=== PATIENT | female | born 1940 | race African-American/Black ===

== ENCOUNTER → 2017-01-31 | Day surgery (SDC) | payer OTHER ==
--- NOTE | 2017-02-01 14:41 | PATH ---
Cytology Non-Gynecological Report Patient Name: [facility]. Rec. #: [id number] /Age/Gender: 1940 (Age: 76) / F Account: [id number] Location: RADIOLOGY Taken: 01/31/2017 Received: 01/31/2017 Reported: 02/01/2017 Physicians: Hamilton Campos M.D. Specimen(s) Received RIGHT THYROID FNA Clinical History Right thyroid nodule Final Diagnosis THYROID GLAND, RIGHT LOBE, US GUIDED FINE NEEDLE ASPIRATION BIOPSY: SATISFACTORY FOR EVALUATION. NO MALIGNANT CELLS IDENTIFIED. CONSISTENT WITH NODULAR GOITER WITH CYSTIC CHANGE (BENIGN FOLLICULAR NODULE, BETHESDA CATEGORY II, BENIGN), SEE COMMENT. Comment: The smears and the cell block show clusters of bland appearing follicular epithelial cells arranged in mixed macro- and microfollicles and flat sheets. Some cells show Hurthle cell (oncocytic) change. Macrophages are present indicative of cystic change. Colloid is present. Electronically Signed Ten Escalona M.D. Gross Description Received are four air dried smears, four smears in 95% alcohol, and 20 cc of bloody fluid in formalin. Four diff-quik stained slides, four Pap stained slides and one cell block are made.
== END | disposition home or self-care (01) ==
LOC: JRADIR 08:36
PROVIDERS: ATTEND Specialist
PROC: 0G9H3ZX Drainage of Right Thyroid Gland Lobe, Percutaneous Approach, Diagnostic (ICD-10-PCS; principal; 2017-01-31)
PROC: BG44ZZZ Ultrasonography of Thyroid Gland (ICD-10-PCS; 2017-01-31)
DX: E04.1 Nontoxic single thyroid nodule (principal)
CPT/HCPCS: 76942; 88173; 88305-TC

== ENCOUNTER 2017-03-04 05:03 | Inpatient (IN) | payer OTHER ==
--- NOTE | 2017-03-04 09:38 | HP ---
History & Physical Update - History History: No Change - Physical Physical: No Change - Assessment Assessment: No Change - Plan Plan: No Change
[2017-03-04] MEDS ORDERED: SUCCINYLCHOLINE CHLORIDE 200 MG/10 ML VIAL ONE (09:58)
[2017-03-04] MEDS ORDERED: PROPOFOL 20 ML ONE (09:58)
[2017-03-04] MEDS ORDERED: LIDOCAINE HCL/PF 2% SDV 5ML VIAL ONE (09:58)
[2017-03-04] MEDS ORDERED: MIDAZOLAM HCL 2 MG/2 ML SINGLE DOSE VIAL ONE (11:13)
[2017-03-04] MEDS ORDERED: ePHEDrine SULFATE 50 MG/1 ML AMPULE ONE (11:17)
[2017-03-04] MEDS ORDERED: ONDANSETRON 4 MG/2 ML VIAL IVPUSH PRN (14:07)
[2017-03-04] MEDS ORDERED: PROMETHAZINE HCL 25 MG/1 ML VIAL IVPUSH PRN (14:07)
[2017-03-04] MEDS ORDERED: oxyCODONE HCL 5 MG TABLET PO PRN (14:07)
--- NOTE | 2017-03-04 14:07 | OP ---
Operative Note - Note: Operative Date: 03/04/17 Pre-Operative Diagnosis: Nodular goiter , right lobe of thyroid. Operation: Total thyroidectomy , removal of mediastinal goiter , cervical approach. Use of Nervana nerve monitor. Findings: Very large, nodular right lobe of thyroid, extending to the left side of mediastinum into the chest , bilaterally. Nodule extending posteriorly and wrapped around the trachea. Post-Operative Diagnosis: Other (Very large , multinodular goiter, with mediastinal and thoracic extention.) Surgeon: Stephanie Wynn Air Export Coordinator: Harvey Rodas Specimens Removed: Nodular thyroid goiter, and mediastinal goiter. Estimated Blood Loss (mls): 350 Blood Volume Replaced (mls): 250 Operative Report Dictated: Yes
[2017-03-04] MEDS ORDERED: HYDROmorphone HCL CARPU-JECT 1 MG/1 ML DISP.SYRIN IM PRN (14:23)
[2017-03-04] MEDS ORDERED: DEXTROSE 5%-0.45% SALINE 1,000 ML IV SCH (14:30)
[2017-03-04 15:41] LABS: MCH 30.9 pg (25.7-33.7); MCHC 33.7 g/dl (32.0-36.0); MEAN CELL VOLUME 91.7 fl (80-96); MEAN PLT VOLUME 9.9 fl (7.5-11.1); PLATELET COUNT 156 K/MM3 (134-434); RDW 13.6 % (11.6-15.6); WHITE BLOOD COUNT 14.6 K/mm3 (4.0-10.0)
[2017-03-04 16:33] LABS: CPK 183 IU/L (26-192); TROPONIN I < 0.02 ng/ml (0.00-0.05)
--- NOTE | 2017-03-04 16:55 | PN ---
Progress Note (short form) - Note Progress Note: Transferred from PACU to ICU for overnight observation s/p Thyroidectomy. Patient is a 76 year old female with significant past medical history of Goitre , Hypertension, Hyperlipidemia, Diabetes who came in to the ED with her for an elective thyroidectomy. She had her surgery today and was transferred from the PACU for overnight observation in the ICU. As per the report, patient received 1 PRBC in the OR, CBC and calcium to be repeated every 8 hrs. Patient says she is feeling drowsy and wants to sleep. Her pain is well controlled at this time. Denies chest pain, sob, cough, palpitation, abdominal pain, nausea or vomiting. Physical Exam: Vitals: BP- 123/66 mm P: 64 bpm RR: 18 Spo2- 100 % General: Elderly female, laying comfortably in bed, awake, alert, oriented x 3 in no acute distress Eyes: EOM intact, no pallor or icterus Neck: Surgical scar esau around the neck, area looks clean, no serosanguinous fluid, Drain in place Chest: B/L Coarse breath sounds, No wheeze. CVS: Regular, S1, S2, no murmur Abdomen: Soft, non tender, no organomegaly, BS + Ext: No peripheral edema Neuro: No facial droop, ROM normal in all ext, rest of the neuro exam difficult to perform at this time. A/P Patient is a 76 year old female with significant past medical history of Goitre , Hypertension, Hyperlipidemia, Diabetes who came in to the ED with her for an elective thyroidectomy. # Nodular goitre- s/p Total thyroidectomy, removal of mediastinal goiter , cervical approach,with JENNIFER drain in place-'POD 0' Monitor output from the drain, so far- 190 mls. Placed for observation overnight in ICU Patient is hemodynamically stable at this time IV D5-1/2 NS @ 75mls/hr Repeat CBC and calcium at 10pm and to repeat every 8 hrs OOB to chair. Incentive spirometry # Diabetes Mellitus At home takes, Saxagliptin HCl/Metformin ISS Finger stick glucose monitoring Watch for hypoglycemic episodes # Hypertension Takes Losartan/HCTZ 1 tab daily at home, will continue # Hyperlipidemia Rosuvastatin 5mg PO daily # FEN IV D5-1/2 NS @ 75mls Electrolytes to be repeated tomorrow Clear liquid diabetic diet # Prophylaxis For DVT: SCDs, Heparin to be started in 48 hrs. For Prophylaxis: Not indicated # Code Status: Full code # Dispo: Observation overnight in ICU. Illness, Investigation and Plan of care explained to the patient and her . They verbalized understanding.
[2017-03-04 16:56] LABS: FREE T4 1.04 ng/dl (0.76-1.46); THYROID STIMULATING HORMONE 0.37 uIU/ml (0.358-3.74)
--- NOTE | 2017-03-04 18:32 | PN ---
Progress Note, Physician Chief Complaint: S/P Thyroidectomy ? post Op arrythmia History of Present Illness: 76 yrs old F H/O HTN, Depression, T2DM today underwent Partialthyroidectomy by Dr Wynn Pos operatively Developed ? arrythmia /artifact admitted to ICU for overnight observation to R/o ACS, I examined the patient inPACU, Pos Operative undersedation - Current Medication List Current Medications: Active Medications Fentanyl (Sublimaze Injection -) 25 mcg IVPUSH [id number] PRN PRN Reason: PAIN Stop: 03/07/17 14:08 Last Admin: 03/04/17 16:15 Dose: 25 mcg HCTZ/Losartan Potassium (Hyzaar -) 1 tab PO DAILY [facility] Hydromorphone HCl (Dilaudid Injection -) 1 mg IM Q4H PRN PRN Reason: PAIN Dextrose/Sodium Chloride (D5-1/2ns -) 1,000 mls @ 75 mls/hr IV ASDIR [facility]ANE[facility] Ondansetron HCl (Zofran Injection) 4 mg IVPUSH Q6H PRN PRN Reason: NAUSEA AND/OR VOMITING Stop: 03/04/17 20:08 Oxycodone HCl (Roxicodone -) 5 mg PO Q4H PRN PRN Reason: MILD PAIN Paroxetine HCl (Paxil -) 20 mg PO DAILY [facility] Promethazine HCl (Phenergan Injection -) 12.5 mg IVPUSH Q6H PRN PRN Reason: NAUSEA-FOR RESCUE AFTER 15 MIN Stop: 03/04/17 20:08 Propranolol HCl (Inderal La -) 80 mg PO DAILY [facility] - Objective Vital Signs: Vital Signs Temperature 98.3 F 03/04/17 16:44 Pulse Rate 71 03/04/17 16:44 Respiratory Rate 18 03/04/17 16:44 Blood Pressure 123/66 03/04/17 16:44 O2 Sat by Pulse Oximetry (%) 100 03/04/17 16:59 Eldely F s/p Partial thyroidectomy undersedation no distress HEENT: Mm moist no anemoa, PERRLA NECK: S/P Thyroidectomy no JVD CHEST: CTA B/L CVs; s1SR ABD: No distention non tender Bs + EXT: No edema feet, no calf tenderness Pulses + TUG CAPTAIN: Drowsy moving all extermities Labs: CBC, BMP 03/04/17 14:45 CBC,CMP WBC 14.6 K/mm3 (4.0-10.0) H 03/04/17 14:45 RBC 3.69 M/mm3 (3.60-5.2) 03/04/17 14:45 Hgb 11.4 GM/dL (10.7-15.3) 03/04/17 14:45 Hct 33.9 % (32.4-45.2) 03/04/17 14:45 MCV 91.7 fl (80-96) 03/04/17 14:45 MCH 30.9 pg (25.7-33.7) 03/04/17 14:45 MCHC 33.7 g/dl (32.0-36.0) 03/04/17 14:45 RDW 13.6 % (11.6-15.6) 03/04/17 14:45 Plt Count 156 K/MM3 (134-434) 03/04/17 14:45 MPV 9.9 fl (7.5-11.1) 03/04/17 14:45 POC Glucometer 143 UNITS (()) 03/04/17 08:14 Calcium 8.5 mg/dL (8.5-10.1) 03/04/17 14:45 Creatine Kinase 183 IU/L (26-192) 03/04/17 14:45 Creatine Kinase Index 0.9 % (0.0-5.0) 03/04/17 14:45 CK-MB (CK-2) 1.751 ng/mL (0.5-3.6) 03/04/17 14:45 Troponin I < 0.02 ng/ml (0.00-0.05) 03/04/17 14:45 TSH 0.37 uIU/ml (0.358-3.74) 03/04/17 15:40 Free T4 1.04 ng/dl (0.76-1.46) 03/04/17 15:40 - ....Imaging X-ray: Report Reviewed (No Pneumothorax) EKG: Report Reviewed (NSR at [address] chnages) Problem List - Problems (1) Diabetes Assessment/Plan: Hold Po meds RISS Code(s): E11.9 - TYPE 2 DIABETES MELLITUS WITHOUT COMPLICATIONS Qualifiers: Diabetes mellitus type: type 1 Diabetes mellitus complication status: with skin complications (2) T2DM (type 2 diabetes mellitus) Code(s): E11.9 - TYPE 2 DIABETES MELLITUS WITHOUT COMPLICATIONS (3) Status post thymectomy Assessment/Plan: S/P Thyroidectomy for goiter , post OP management as per surgery team Code(s): Z90.89 - ACQUIRED ABSENCE OF OTHER ORGANS (4) HTN (hypertension) Assessment/Plan: Well controlled cont home meds Code(s): I10 - ESSENTIAL (PRIMARY) HYPERTENSION
--- NOTE | 2017-03-04 18:55 | OP ---
DATE OF OPERATION: 03/04/2017 PREOPERATIVE DIAGNOSIS: Nodule in right lobe of thyroid, status post right thyroid lobectomy 30 years ago. POSTOPERATIVE DIAGNOSIS: Multinodular thyroid goiter that is wrapped around the trachea involving the mediastinum extending down into the chest. OPERATIVE PROCEDURE: Total thyroidectomy with removal of mediastinal goiter through the regular approach and use of Nerveana nerve monitor. SURGEON: Teri Wynn MD SHEET METAL ASSEMBLER AND RIVETER: Harvey Rodas MD ANESTHESIA: General anesthesia using Nerveana nerve monitoring device. OPERATIVE DESCRIPTION: A 76-year-old woman who had a large nodule in the right lobe of the thyroid. She had an ultrasound which showed a large goiter, more than 4 cm in the right lobe of the thyroid. Patient was brought in for thyroidectomy. Risks , benefits, and complications were discussed with the patient, and anesthesia was administered. The neck was painted and draped and positioned in extension. A timeout was called. Incision was made over the superior skin scar, along the skin crease, 1 fingerbreadth above the clavicle. It was deepened through the skin and subcutaneous tissue and platysma muscle. Superior and inferior skin flaps were then placed between the platysma, and the deep cervical fascia. There were extensive adhesions in the neck which were also lysed. The gland was then exposed. It extended around the trachea and the larynx, all the way to the vertebral body, extended across the front over the trachea towards the left and down into the mediastinum on both sides of the trachea down into the chest. The gland was then mobilized carefully, starting with the upper pole of the right lobe of the thyroid, dividing the superior thyroid vessels between clips, and the LigaSure. The middle thyroid vein was also divided between clips and LigaSure. The parathyroid glands were identified and preserved throughout the procedure. The gland was then mobilized carefully. There were multiple nodules. This was then carried across the midline towards the left of the trachea. The mediastinal component was brought into the neck bilaterally. The mediastinal component on the left side was easily brought into the neck through the cervical approach. The right sided thyroid nodule, extended posteriorly way down into the chest, and therefore, only the nodules that were easily accessible, and excised, were removed and the rest was left in the chest. However its blood supply shahab interrupted from the neck. Hemostasis was satisfactory at the completion of the procedure. The recurrent laryngeal nerve on the right side was identified and preserved with appropriate response to stimulation with the Nerveana nerve monitoring device. The hemostasis was satisfactory at the completion of the procedure. The No. 10 Edwin-Tobias drain was left in the wound and brought out through stab wound on the right side. The gland was removed at the site of previous division. Specimen was sent to Pathology. Hemostasis was complete at the completion of procedure. There was about 350 mL of blood loss during the procedure. Sponge count, instrument count was correct at the completion of the procedure. The wounds were closed in layers, approximating the strap muscles with interrupted 2-0 Vicryl sutures, platysma buried interrupted 3-0 Vicryl sutures, and skin approximated continuous 4-0 Monocryl suture in a running subcuticular fashion. Sponge count, instrument count is correct at the completion of the procedure. Patient was extubated and awake at the completion of the procedure. Patient will be monitored in ICU. Hamilton [id number]
[2017-03-04] MEDS: INSULIN SLIDING SCALE (NOVOLOG) 1 VIAL SQ SCH (19:08)
[2017-03-04] MEDS ORDERED: SODIUM CHLORIDE 250 ML IV STA (20:37)
--- NOTE | 2017-03-04 21:23 | CONSULT ---
Consult - text type - Consultation Consultation Note: PULMONARY/CRITICAL CARE CONSULT: CC: s/l total thyroidectomy HPI: Briefly, 76 y/o female with HTN, HLD and DM2 who underwent total thyroidectomy today with Dr Wynn. She was admitted to the ICU post up for ? observation. Current Medications Fentanyl (Sublimaze Injection -) 25 mcg IVPUSH [id number] PRN PRN Reason: PAIN Stop: 03/07/17 14:08 Last Admin: 03/04/17 16:15 Dose: 25 mcg HCTZ/Losartan Potassium (Hyzaar -) 1 tab PO DAILY [facility] Hydromorphone HCl (Dilaudid Injection -) 1 mg IM Q4H PRN PRN Reason: PAIN Dextrose/Sodium Chloride (D5-1/2ns -) 1,000 mls @ 75 mls/hr IV ASDIR SHANELL Last Admin: 03/04/17 16:30 Dose: 75 mls/hr Insulin Aspart (Novolog Vial Sliding Scale -) 1 vial SQ Q6H [facility] PRN Reason: Protocol Last Admin: 03/04/17 19:08 Dose: 4 units Oxycodone HCl (Roxicodone -) 5 mg PO Q4H PRN PRN Reason: MILD PAIN Paroxetine HCl (Paxil -) 20 mg PO DAILY [facility] Propranolol HCl (Inderal La -) 80 mg PO DAILY [facility] Vital Signs Temp 98.9 F 03/04/17 20:00 Pulse 61 03/04/17 20:00 Resp 12 03/04/17 20:25 BP 88/41 03/04/17 20:00 Pulse Ox 100 03/04/17 20:25 Intake & Output 03/04/17 03/04/17 03/05/17 06:59 18:59 06:59 Intake Total 2100 225 Output Total 685 60 Balance 1415 165 Intake: IV 1750 225 D5-1/2Ns - 1,000 ml @ 75 225 mls/hr IV ASDIR SHANELL Rx#: [id number] Blood Product 350 Output: Drainage 185 60 neck christian drain 60 Estimated Blood Loss 500 Other: Voiding Method Bedpan EXAM: neuro: alert HEENT: PERRL, MMM, good phonation, no stridor lungs: clear heart: RRR abd: obese, soft ext: no edema, warm skin: warm, dry CBC, BMP 03/04/17 14:45 ASSESSMENT/PLAN: POD 0 total thyroidectomy for goider HTN HLD DM2 -surgical follow up -restart home meds -tx to floor Thank you for this interesting consult Cj Bosch/CC TRAFFIC TECHNICIAN
[2017-03-04 21:53] LABS: MCH 30.8 pg (25.7-33.7); MCHC 33.6 g/dl (32.0-36.0); MEAN CELL VOLUME 91.6 fl (80-96); MEAN PLT VOLUME 10.1 fl (7.5-11.1); PLATELET COUNT 150 K/MM3 (134-434); RDW 13.7 % (11.6-15.6); WHITE BLOOD COUNT 12.4 K/mm3 (4.0-10.0)
[2017-03-04 22:29] LABS: ANION GAP 8 (8-16); CALCIUM 8.4 mg/dL (8.5-10.1); CO2 27 mmol/L (21-32); CREATININE 1.3 mg/dL (0.55-1.02); GLUCOSE,RANDOM 150 mg/dL (74-106)
[2017-03-05] MEDS: INSULIN SLIDING SCALE (NOVOLOG) 1 VIAL SQ SCH ×4 (00:16→17:39)
[2017-03-05 06:46] LABS: MCH 30.8 pg (25.7-33.7); MCHC 33.6 g/dl (32.0-36.0); MEAN CELL VOLUME 91.6 fl (80-96); MEAN PLT VOLUME 10.4 fl (7.5-11.1); PLATELET COUNT 160 K/MM3 (134-434); RDW 13.9 % (11.6-15.6); WHITE BLOOD COUNT 10.9 K/mm3 (4.0-10.0)
[2017-03-05 07:26] LABS: ALBUMIN 2.9 g/dl (3.4-5.0); ALK PHOS 42 U/L (45-117); ANION GAP 10 (8-16); BILIRUBIN,TOTAL 0.6 mg/dL (0.2-1.0); CO2 26 mmol/L (21-32); CREATININE 1.2 mg/dL (0.55-1.02); GLUCOSE,RANDOM 137 mg/dL (74-106); MAGNESIUM 1.7 mg/dL (1.8-2.4); PHOSPHOROUS 4.8 mg/dL (2.5-4.9); SGOT/AST 19 U/L (15-37); SGPT/ALT 21 U/L (12-78); TOT PROT 5.3 g/dl (6.4-8.2)
[2017-03-05] MEDS ORDERED: ACETAMINOPHEN 325 MG TABLET (FP) PO PRN (09:11)
[2017-03-05] MEDS ORDERED: PT OWN MED DRAWER 7, Y5N ONE (09:18)
--- NOTE | 2017-03-05 09:52 | PN ---
Progress Note (short form) - Note Progress Note: PULMONARY/CCM Pt seen and examined in the ICU. Pain controlled, denies shortness of breath or chest pain. No fevers or chills. Some throat discomfort. Last Vital Signs Temp Pulse Resp BP Pulse Ox 98.4 F 54 L 12 105/51 100 03/05/17 06:00 03/05/17 06:00 03/05/17 06:00 03/05/17 06:00 03/04/17 20:25 Intake & Output 03/02/17 03/03/17 03/04/17 03/05/17 23:59 23:59 23:59 23:59 Intake Total 2325 1350 Output Total 1145 460 Balance 1180 890 Gen: NAD at rest Neck: incision clean, +drain with serosanguinous Heart: RRR Lung: decreased breath sounds at the bases Abd: soft, nontender Ext: no edema CBC, BMP 03/05/17 05:15 03/05/17 05:15 Active Medications Acetaminophen (Tylenol -) 650 mg PO Q4H PRN PRN Reason: FEVER OR PAIN Last Admin: 03/05/17 09:20 Dose: 650 mg Fentanyl (Sublimaze Injection -) 25 mcg IVPUSH [id number] PRN PRN Reason: PAIN Stop: 03/07/17 14:08 Last Admin: 03/04/17 16:15 Dose: 25 mcg HCTZ/Losartan Potassium (Hyzaar -) 1 tab PO DAILY [facility] Last Admin: 03/05/17 09:23 Dose: 1 tab Hydromorphone HCl (Dilaudid Injection -) 1 mg IM Q4H PRN PRN Reason: PAIN Dextrose/Sodium Chloride (D5-1/2ns -) 1,000 mls @ 75 mls/hr IV ASDIR [facility] Last Admin: 03/04/17 16:30 Dose: 75 mls/hr Insulin Aspart (Novolog Vial Sliding Scale -) 1 vial SQ Q6H [facility] PRN Reason: Protocol Last Admin: 03/05/17 07:04 Dose: Not Given Oxycodone HCl (Roxicodone -) 5 mg PO Q4H PRN PRN Reason: MILD PAIN Last Admin: 03/04/17 21:55 Dose: 5 mg Paroxetine HCl (Paxil -) 20 mg PO DAILY [facility] Last Admin: 03/05/17 09:23 Dose: 20 mg Propranolol HCl (Inderal La -) 80 mg PO DAILY [facility] Last Admin: 03/05/17 09:23 Dose: 80 mg A/P s/p Total Thyroidectomy POD #1 HTN Hyperlipidemia DM - pain control - monitor drain output - continue home meds - DVT prophylaxis - can monitor on floor
[2017-03-05] MEDS ORDERED: PARoxetine HCL 20 MG TABLET (FP) PO SCH (10:00)
[2017-03-05] MEDS ORDERED: LOSARTAN 50MG/HCTZ 12.5MG 1 TAB (FP) PO SCH (10:00)
[2017-03-05] MEDS ORDERED: oxyCODONE HCL 5 MG TABLET PO PRN (12:46)
[2017-03-05] MEDS ORDERED: SODIUM CHLORIDE 250 ML IV STA (12:46)
--- NOTE | 2017-03-05 13:13 | PN ---
Progress Note, Physician Chief Complaint: S/P Thyroidectomy, comfortable History of Present Illness: 76 yrs old F H/O HTN, Depression, T2DM today underwent Partialthyroidectomy by Dr Wynn Pos operatively Developed ? arrythmia /artifact admitted to ICU for overnight observation to R/o ACS, I examined the patient in PACU, Pos Operative undersedation - Current Medication List Current Medications: Active Medications Acetaminophen (Tylenol -) 650 mg PO Q4H PRN PRN Reason: FEVER OR PAIN Fentanyl (Sublimaze Injection -) 25 mcg IVPUSH [id number] PRN PRN Reason: PAIN Stop: 03/07/17 14:08 HCTZ/Losartan Potassium (Hyzaar -) 1 tab PO DAILY [facility] Dextrose/Sodium Chloride (D5-1/2ns -) 1,000 mls @ 75 mls/hr IV ASDIR SHANELL Sodium Chloride (Normal Saline -) 250 mls @ 500 mls/hr IV ASDIR STA Stop: 03/05/17 13:15 Insulin Aspart (Novolog Vial Sliding Scale -) 1 vial SQ Q6H [facility] PRN Reason: Protocol Oxycodone HCl (Roxicodone -) 5 mg PO Q4H PRN PRN Reason: MILD PAIN Paroxetine HCl (Paxil -) 20 mg PO DAILY [facility] Propranolol HCl (Inderal La -) 80 mg PO DAILY [facility] - Objective Vital Signs: Vital Signs Temperature 98.2 F 03/05/17 08:00 Pulse Rate 73 03/05/17 12:00 Respiratory Rate 12 03/05/17 12:00 Blood Pressure 90/53 03/05/17 12:00 O2 Sat by Pulse Oximetry (%) 100 03/05/17 09:00 Eldely F s/p Partial thyroidectomy undersedation no distress HEENT: Mm moist no anemoa, PERRLA NECK: S/P Thyroidectomy no JVD CHEST: CTA B/L CVs; s1SR ABD: No distention non tender Bs + EXT: No edema feet, no calf tenderness Pulses + ON SITE NURSE: Drowsy moving all extermities Labs: CBC, BMP 03/05/17 05:15 03/05/17 05:15 Problem List - Problems (1) Diabetes Assessment/Plan: Hold Po meds RISS Code(s): E11.9 - TYPE 2 DIABETES MELLITUS WITHOUT COMPLICATIONS Qualifiers: Diabetes mellitus type: type 1 Diabetes mellitus complication status: with skin complications (2) T2DM (type 2 diabetes mellitus) Code(s): E11.9 - TYPE 2 DIABETES MELLITUS WITHOUT COMPLICATIONS (3) Status post thymectomy Assessment/Plan: S/P Thyroidectomy for goiter , post OP management as per surgery team Code(s): Z90.89 - ACQUIRED ABSENCE OF OTHER ORGANS (4) HTN (hypertension) Assessment/Plan: Well controlled cont home meds Code(s): I10 - ESSENTIAL (PRIMARY) HYPERTENSION
[2017-03-05 17:23] LABS: MCH 30.9 pg (25.7-33.7); MCHC 33.5 g/dl (32.0-36.0); MEAN CELL VOLUME 92.1 fl (80-96); PLATELET COUNT 149 K/MM3 (134-434); RDW 13.8 % (11.6-15.6); WHITE BLOOD COUNT 10.1 K/mm3 (4.0-10.0)
--- NOTE | 2017-03-05 17:33 | PN ---
Progress Note, Physician - Current Medication List Current Medications: Active Medications Acetaminophen (Tylenol -) 650 mg PO Q4H PRN PRN Reason: FEVER OR PAIN Fentanyl (Sublimaze Injection -) 25 mcg IVPUSH [id number] PRN PRN Reason: PAIN Stop: 03/07/17 14:08 HCTZ/Losartan Potassium (Hyzaar -) 1 tab PO DAILY [facility] Dextrose/Sodium Chloride (D5-1/2ns -) 1,000 mls @ 75 mls/hr IV ASDIR SHANELL Insulin Aspart (Novolog Vial Sliding Scale -) 1 vial SQ Q6H [facility] PRN Reason: Protocol Oxycodone HCl (Roxicodone -) 5 mg PO Q4H PRN PRN Reason: MILD PAIN Paroxetine HCl (Paxil -) 20 mg PO DAILY [facility] Propranolol HCl (Inderal La -) 80 mg PO DAILY [facility] - Objective Vital Signs: Vital Signs Temperature 98.2 F 03/05/17 08:00 Pulse Rate 73 03/05/17 12:00 Respiratory Rate 12 03/05/17 12:00 Blood Pressure 90/53 03/05/17 12:00 O2 Sat by Pulse Oximetry (%) 100 03/05/17 09:00 Labs: CBC, BMP 03/05/17 16:20 03/05/17 05:15 Assessment/Plan s/p Thyroidectomy, with mediastinal component. Patient is hemodynamically stable. Still danielle intrathoracic component. no pneumorhorax. Drainage reduced. tolerating diet. voice is normal. Will request lateral Chest Xray. continue to monitor.
--- NOTE | 2017-03-05 18:41 | EKG ---
Test Reason : Blood Pressure : / mmHG Vent. Rate : 066 BPM Atrial Rate : 066 BPM P-R Int : 160 ms QRS Dur : 078 ms QT Int : 408 ms P-R-T Axes : 051 -03 014 degrees QTc Int : 427 ms NORMAL SINUS RHYTHM NORMAL ECG NO PREVIOUS ECGS AVAILABLE Confirmed by MARY REYNOSO MD ([id number]) on 03/05/2017 6:41:10 PM Referred By: Stephanie Wynn Confirmed By:MARY REYNOSO MD
[2017-03-05] MEDS: DEXTROSE 5%-0.45% SALINE 1,000 ML IV SCH (19:46)
[2017-03-05] MEDS: ACETAMINOPHEN 325 MG TABLET (FP) PO PRN (20:18)
[2017-03-06] MEDS: INSULIN SLIDING SCALE (NOVOLOG) 1 VIAL SQ SCH ×4 (00:24→17:53)
[2017-03-06] MEDS: DEXTROSE 5%-0.45% SALINE 1,000 ML IV SCH ×2 (00:59→13:26)
--- NOTE | 2017-03-06 07:19 | PN ---
Progress Note, Physician Chief Complaint: S/P THYROID LOBECTOMY UNDER GENERAL ANESTHESIA History of Present Illness: POST OP DAY ONE, SURGERY AND ANESTHETIC COMPLICATED BY BLOOD LOSS REQUIRING TRANSFUSION, NO ADVERSE CARDIOVASCULAR EFFECTS NOTED. - Current Medication List Current Medications: Active Medications Acetaminophen (Tylenol -) 650 mg PO Q4H PRN PRN Reason: FEVER OR PAIN Last Admin: 03/05/17 20:18 Dose: 650 mg Fentanyl (Sublimaze Injection -) 25 mcg IVPUSH [id number] PRN PRN Reason: PAIN Stop: 03/07/17 14:08 HCTZ/Losartan Potassium (Hyzaar -) 1 tab PO DAILY [facility] Dextrose/Sodium Chloride (D5-1/2ns -) 1,000 mls @ 75 mls/hr IV ASDIR SHANELL Last Admin: 03/06/17 00:59 Dose: 75 mls/hr Insulin Aspart (Novolog Vial Sliding Scale -) 1 vial SQ Q6H [facility] PRN Reason: Protocol Last Admin: 03/06/17 06:42 Dose: 2 units Oxycodone HCl (Roxicodone -) 5 mg PO Q4H PRN PRN Reason: MILD PAIN Last Admin: 03/05/17 20:17 Dose: 5 mg Paroxetine HCl (Paxil -) 20 mg PO DAILY [facility] Propranolol HCl (Inderal La -) 80 mg PO DAILY [facility] - Objective Vital Signs: Vital Signs Temperature 97.4 F L 03/06/17 06:00 Pulse Rate 82 03/06/17 06:00 Respiratory Rate 20 03/06/17 06:00 Blood Pressure 136/77 03/06/17 06:00 O2 Sat by Pulse Oximetry (%) 97 03/05/17 21:00 Constitutional: Yes: Well Nourished Cardiovascular: Yes: WNL Respiratory: Yes: WNL Gastrointestinal: Yes: WNL Labs: CBC, BMP 03/05/17 16:20 03/05/17 05:15 Assessment/Plan POST OP DAY TWO. PATIENT DOING WELL, NO ADVERSE EFFECTS FROM ANESTHETIC, PAIN CONTROLLED, NO NAUSEA OR VOMITING. DEPT OF ANESTHESIA WILL SIGN OFF CASE AT THIS TIME.
[2017-03-06 07:48] LABS: BASOPHIL 0.6 % (0-2.0); EOSINOPHIL 1.6 % (0-4.5); MCH 31.3 pg (25.7-33.7); MEAN PLT VOLUME 10.1 fl (7.5-11.1); NEUTROPHILS 61.3 % (42.8-82.8); PLATELET COUNT 141 K/MM3 (134-434); WHITE BLOOD COUNT 8.3 K/mm3 (4.0-10.0)
[2017-03-06 08:13] LABS: ANION GAP 6 (8-16); BILIRUBIN,TOTAL 0.4 mg/dL (0.2-1.0); CALCIUM 7.7 mg/dL (8.5-10.1); CO2 30 mmol/L (21-32); GLUCOSE,RANDOM 145 mg/dL (74-106); SGOT/AST 18 U/L (15-37); SGPT/ALT 19 U/L (12-78); TOT PROT 5.6 g/dl (6.4-8.2)
[2017-03-06 08:14] LABS: ALK PHOS 42 U/L (45-117)
--- NOTE | 2017-03-06 08:58 | PN ---
Progress Note, Physician Chief Complaint: Post OP Day 2nd S/P Thyroidectomy, comfortable - Current Medication List Current Medications: Active Medications Acetaminophen (Tylenol -) 650 mg PO Q4H PRN PRN Reason: FEVER OR PAIN Last Admin: 03/05/17 20:18 Dose: 650 mg Fentanyl (Sublimaze Injection -) 25 mcg IVPUSH [id number] PRN PRN Reason: PAIN Stop: 03/07/17 14:08 HCTZ/Losartan Potassium (Hyzaar -) 1 tab PO DAILY [facility] Dextrose/Sodium Chloride (D5-1/2ns -) 1,000 mls @ 75 mls/hr IV ASDIR SHANELL Last Admin: 03/06/17 00:59 Dose: 75 mls/hr Insulin Aspart (Novolog Vial Sliding Scale -) 1 vial SQ Q6H [facility] PRN Reason: Protocol Last Admin: 03/06/17 06:42 Dose: 2 units Oxycodone HCl (Roxicodone -) 5 mg PO Q4H PRN PRN Reason: MILD PAIN Last Admin: 03/05/17 20:17 Dose: 5 mg Paroxetine HCl (Paxil -) 20 mg PO DAILY [facility] Propranolol HCl (Inderal La -) 80 mg PO DAILY [facility] - Objective Vital Signs: Vital Signs Temperature 97.4 F L 03/06/17 06:00 Pulse Rate 82 03/06/17 06:00 Respiratory Rate 20 03/06/17 06:00 Blood Pressure 136/77 03/06/17 06:00 O2 Sat by Pulse Oximetry (%) 97 03/05/17 21:00 Eldely F s/p Partial thyroidectom, no distress HEENT: Mm moist no anemoa, PERRLA NECK: S/P Thyroidectomy no JVD CHEST: CTA B/L CVs; s1SR ABD: No distention non tender Bs + EXT: No edema feet, no calf tenderness Pulses + PROCESSING LEAD: AOX3 non focal Labs: CBC, BMP 03/06/17 06:20 03/06/17 06:20 Problem List - Problems (1) Diabetes Assessment/Plan: Hold Po meds RISS Code(s): E11.9 - TYPE 2 DIABETES MELLITUS WITHOUT COMPLICATIONS Qualifiers: Diabetes mellitus type: type 1 Diabetes mellitus complication status: with skin complications (2) Status post thymectomy Assessment/Plan: S/P Thyroidectomy day 2nd for goiter , post OP management as per surgery team Code(s): Z90.89 - ACQUIRED ABSENCE OF OTHER ORGANS (3) HTN (hypertension) Assessment/Plan: Well controlled cont home meds Code(s): I10 - ESSENTIAL (PRIMARY) HYPERTENSION
[2017-03-06] MEDS ORDERED: PT OWN MED DRAWER 7, Y5N ONE (09:56)
[2017-03-06] MEDS: ACETAMINOPHEN 325 MG TABLET (FP) PO PRN ×2 (09:59→22:15)
[2017-03-06] MEDS: PARoxetine HCL 20 MG TABLET (FP) PO SCH (09:59)
[2017-03-06] MEDS: LOSARTAN 50MG/HCTZ 12.5MG 1 TAB (FP) PO SCH (09:59)
[2017-03-06] MEDS ORDERED: HYDROmorphone HCL CARPU-JECT 1 MG/1 ML DISP.SYRIN IVPB PRN (10:02)
--- NOTE | 2017-03-06 11:59 | CON.CARD ---
Consult Consult Specialty:: Cardiology Referred by:: Bobby Navarrete MD Reason for Consultation:: HTN - History of Present Illness Chief Complaint: s/p thyroidectomy History of Present Illness: 76 y/o female with HTN, HLD and DM2 who underwent total thyroidectomy POD#[address] Wynn. There was a concern of post-op arrhythmia although no strips/ekgs demonstrating such is available for review. She reports episodic fluttering sensation when turning from side to side in bed, but denies chest pain, dyspnea , near or true syncope, orthopnea, PND or LE edema. - History Source History Provided By: Patient Limitations to Obtaining History: No Limitations - Alcohol/Substance Use Hx Alcohol Use: Yes (rarely) - Smoking History Smoking history: Former smoker Have you smoked in the past 12 months: No If you are a former smoker, when did you quit?: 30 years ago Home Medications - Allergies Allergies/Adverse Reactions: Allergies Allergy/AdvReac Type Severity Reaction Status Date / Time No Known Allergies Allergy Verified 02/24/17 12:06 - Home Medications Home Medications: Ambulatory Orders Aspirin [ASA -] 81 mg PO DAILY 08/07/15 Paroxetine HCl [Paxil] 20 mg PO DAILY 08/07/15 Propranolol HCl [Inderal LA] 80 mg PO DAILY 08/07/15 Losartan/Hydrochlorothiazide [Hyzaar 50-12.5 Tablet] 1 each PO DAILY 02/24/17 Rosuvastatin Calcium [Crestor] 5 mg PO DAILY 02/24/17 Saxagliptin HCl/Metformin HCl [Kombiglyze Xr 5-500 mg Tablet] 1 tab DAILY Review of Systems - Review of Systems Neck: reports: Other (Incisinal discomfort) Cardiovascular: reports: Palpitations Vital Signs: Vital Signs Temperature 99.4 F 03/06/17 10:00 Pulse Rate 64 03/06/17 10:00 Respiratory Rate 20 03/06/17 10:00 Blood Pressure 124/51 03/06/17 10:00 O2 Sat by Pulse Oximetry (%) 97 03/05/17 21:00 Constitutional: Yes: No Distress, Calm HENT: Yes: Atraumatic Neck: Yes: Supple, Other (Incision clean) Respiratory: Yes: Regular, CTA Bilaterally Gastrointestinal: Yes: Normal Bowel Sounds, Soft Cardiovascular: Yes: Regular Rate and Rhythm JVD: No Carotid Bruit: No Heart Sounds: Yes: S1, S2 Edema: No - Other Data Labs, Other Data: CBC, BMP 03/06/17 06:20 03/06/17 06:20 SR @ [address]-T changes Problem List - Problems (1) HTN (hypertension) Code(s): I10 - ESSENTIAL (PRIMARY) HYPERTENSION Qualifiers: Hypertension type: essential hypertension Qualified Code(s): I10 - Essential (primary) hypertension (2) T2DM (type 2 diabetes mellitus) Code(s): E11.9 - TYPE 2 DIABETES MELLITUS WITHOUT COMPLICATIONS Qualifiers: Diabetes mellitus complication status: without complication Diabetes mellitus intermodal customer service insulin use: without intermodal customer service use Qualified Code(s): E11.9 - Type 2 diabetes mellitus without complications (3) Hyperlipidemia associated with type 2 diabetes mellitus Code(s): E11.69 - TYPE 2 DIABETES MELLITUS WITH OTHER SPECIFIED COMPLICATION E78.5 - HYPERLIPIDEMIA, UNSPECIFIED (4) History of thyroidectomy, total Code(s): E89.0 - POSTPROCEDURAL HYPOTHYROIDISM (5) Intermittent palpitations Code(s): R00.2 - PALPITATIONS (6) Anemia Code(s): D64.9 - ANEMIA, UNSPECIFIED Qualifiers: Anemia type: other cause Assessment/Plan 1. s/p Total Thyroidectomy POD #2 2. Palpitations, evaluate for sustained arrhythmia 3. HTN 4. Hyperlipidemia 5. DM 6. Anemia P:1. Analgesia as needed, monitor drain output, DVT prophylaxis, post-op f/u 2. Continue Hyzaar 1 qd, Inderal LA 80 qd, resume ASA 81 qd once post-op hemostasis has beed achieved 3. Echocardiogram to assess ventricular and valve fxn 4. Holter monitor to assess arrhythmia burden 5. Thank you for consultative opportunity
--- NOTE | 2017-03-06 13:13 | CONSULT ---
Consult Consult Specialty:: Surgery Referred by:: Shea Fontanez Reason for Consultation:: Abdominal pain ,pancreatitis, / intestinal obstruction.. - History of Present Illness Chief Complaint: Abdominal pain x 7 days, with vomiting. History of Present Illness: 76 year old man c/o having central abdominal pain for one week , associated with vomiting. He has chronic constipation. He denies alcohol abuse , and has not had any similar abdominal pain in the past. He has not had any abdominal surgery. - History Source History Provided By: Patient - Alcohol/Substance Use Hx Alcohol Use: Yes (rarely) - Smoking History Smoking history: Former smoker Have you smoked in the past 12 months: No If you are a former smoker, when did you quit?: 30 years ago Home Medications - Allergies Allergies/Adverse Reactions: Allergies Allergy/AdvReac Type Severity Reaction Status Date / Time No Known Allergies Allergy Verified 02/24/17 12:06 - Home Medications Home Medications: Ambulatory Orders Aspirin [ASA -] 81 mg PO DAILY 08/07/15 Paroxetine HCl [Paxil] 20 mg PO DAILY 08/07/15 Propranolol HCl [Inderal LA] 80 mg PO DAILY 08/07/15 Losartan/Hydrochlorothiazide [Hyzaar 50-12.5 Tablet] 1 each PO DAILY 02/24/17 Rosuvastatin Calcium [Crestor] 5 mg PO DAILY 02/24/17 Saxagliptin HCl/Metformin HCl [Kombiglyze Xr 5-500 mg Tablet] 1 tab DAILY Physical Exam Vital Signs: Vital Signs Temperature 99.4 F 03/06/17 10:00 Pulse Rate 64 03/06/17 10:00 Respiratory Rate 20 03/06/17 10:00 Blood Pressure 124/51 03/06/17 10:00 O2 Sat by Pulse Oximetry (%) 97 03/05/17 21:00 Gastrointestinal: Yes: Other (Abdomen is not distended , soft , no guarding, no rigidity, no mass is palpable.) Labs: CBC, BMP 03/06/17 06:20 03/06/17 06:20 Imaging - Results Cat Scan: Report Reviewed Ultrasound: Report Reviewed Problem List - Problems (1) Abdominal pain Code(s): R10.9 - UNSPECIFIED ABDOMINAL PAIN Qualifiers: Abdominal location: periumbilical Qualified Code(s): R10.33 - Periumbilical pain (2) Vomiting Code(s): R11.10 - VOMITING, UNSPECIFIED (3) Elevated lipase Code(s): R74.8 - ABNORMAL LEVELS OF OTHER SERUM ENZYMES (4) HTN (hypertension) Code(s): I10 - ESSENTIAL (PRIMARY) HYPERTENSION Qualifiers: Hypertension type: essential hypertension Qualified Code(s): I10 - Essential (primary) hypertension (5) Hyperlipidemia associated with type 2 diabetes mellitus Code(s): E11.69 - TYPE 2 DIABETES MELLITUS WITH OTHER SPECIFIED COMPLICATION E78.5 - HYPERLIPIDEMIA, UNSPECIFIED Assessment/Plan NG tube is placed , minimal drainage noted. He has had a bowel movement this morning and
--- NOTE | 2017-03-06 13:58 | PN ---
Progress Note, Physician - Current Medication List Current Medications: Active Medications Acetaminophen (Tylenol -) 650 mg PO Q4H PRN PRN Reason: FEVER OR PAIN Last Admin: 03/06/17 09:59 Dose: 650 mg Fentanyl (Sublimaze Injection -) 25 mcg IVPUSH [id number] PRN PRN Reason: PAIN Stop: 03/07/17 14:08 HCTZ/Losartan Potassium (Hyzaar -) 1 tab PO DAILY [facility] Last Admin: 03/06/17 09:59 Dose: 1 tab Hydromorphone HCl (Dilaudid Injection -) 1 mg IVPB Q6H PRN PRN Reason: PAIN Dextrose/Sodium Chloride (D5-1/2ns -) 1,000 mls @ 75 mls/hr IV ASDIR [facility] Last Admin: 03/06/17 13:26 Dose: Not Given Insulin Aspart (Novolog Vial Sliding Scale -) 1 vial SQ Q6H [facility] PRN Reason: Protocol Last Admin: 03/06/17 11:56 Dose: 2 units Oxycodone HCl (Roxicodone -) 5 mg PO Q4H PRN PRN Reason: MILD PAIN Last Admin: 03/05/17 20:17 Dose: 5 mg Paroxetine HCl (Paxil -) 20 mg PO DAILY [facility] Last Admin: 03/06/17 09:59 Dose: 20 mg Propranolol HCl (Inderal La -) 80 mg PO DAILY [facility] Last Admin: 03/06/17 09:59 Dose: 80 mg - Objective Vital Signs: Vital Signs Temperature 99.4 F 03/06/17 10:00 Pulse Rate 64 03/06/17 10:00 Respiratory Rate 20 03/06/17 10:00 Blood Pressure 124/51 03/06/17 10:00 O2 Sat by Pulse Oximetry (%) 97 03/05/17 21:00 Labs: CBC, BMP 03/06/17 06:20 03/06/17 06:20 Problem List - Problems (1) Abdominal pain Code(s): R10.9 - UNSPECIFIED ABDOMINAL PAIN Qualifiers: Abdominal location: periumbilical Qualified Code(s): R10.33 - Periumbilical pain (2) Vomiting Code(s): R11.10 - VOMITING, UNSPECIFIED (3) Elevated lipase Code(s): R74.8 - ABNORMAL LEVELS OF OTHER SERUM ENZYMES (4) HTN (hypertension) Code(s): I10 - ESSENTIAL (PRIMARY) HYPERTENSION Qualifiers: Hypertension type: essential hypertension Qualified Code(s): I10 - Essential (primary) hypertension (5) Hyperlipidemia associated with type 2 diabetes mellitus Code(s): E11.69 - TYPE 2 DIABETES MELLITUS WITH OTHER SPECIFIED COMPLICATION E78.5 - HYPERLIPIDEMIA, UNSPECIFIED Assessment/Plan Surgery: patient is alert and oriented. out of bed in chair, comfortable, talking to her sister. Dixon drain 27 ml. yesterday, drain is removed. hematocrit is 25, patient is tolerating , will hold transfusion, and consider transfusion , if further drop on hematocrit, or signs of hypovlemia. continue to monitor CBC. Serum calcium is 7.7 mgm, no symptoms or signs of hypocalcemia, will supplement oral calcium and vitamin D3, oscal. Continue to monitor serum calcium. Having cardiac assessment.
[2017-03-06] MEDS: FERROUS SO4/VIT C/FA 1 EACH TABLET.ER PO SCH (15:32)
[2017-03-06 15:52] LABS: MCH 30.9 pg (25.7-33.7); MCHC 33.5 g/dl (32.0-36.0); MEAN CELL VOLUME 92.2 fl (80-96); MEAN PLT VOLUME 10.1 fl (7.5-11.1); PLATELET COUNT 152 K/MM3 (134-434); RDW 13.9 % (11.6-15.6); WHITE BLOOD COUNT 9.4 K/mm3 (4.0-10.0)
[2017-03-06] MEDS: CALCIUM 250MG/VIT-D 125 UNITS 1 COMBO TABLET PO SCH (21:25)
[2017-03-07] MEDS: INSULIN SLIDING SCALE (NOVOLOG) 1 VIAL SQ SCH ×4 (00:55→17:44)
[2017-03-07] MEDS: LEVOTHYROXINE NA 50 MCG TABLET (FP) PO SCH (06:12)
[2017-03-07 08:22] LABS: MCHC 33.7 g/dl (32.0-36.0); MEAN CELL VOLUME 92.2 fl (80-96); MEAN PLT VOLUME 10.1 fl (7.5-11.1); PLATELET COUNT 148 K/MM3 (134-434); WHITE BLOOD COUNT 7.4 K/mm3 (4.0-10.0)
--- NOTE | 2017-03-07 08:40 | PN ---
Progress Note, Physician Chief Complaint: Post OP Day 3rd S/P Thyroidectomy, comfortable History of Present Illness: 76 yrs old F H/O HTN, Depression, T2DM today underwent Partialthyroidectomy by Dr Wynn Pos operatively Developed ? arrhythmia /artifact admitted to ICU for overnight observation to R/o ACS, - Current Medication List Current Medications: Active Medications Acetaminophen (Tylenol -) 650 mg PO Q4H PRN PRN Reason: FEVER OR PAIN Last Admin: 03/06/17 22:15 Dose: 650 mg Calcium/Vitamin D (Oscal 250 Mg+D -) 2 tab PO BID [facility] Last Admin: 03/06/17 21:25 Dose: 2 tab Fentanyl (Sublimaze Injection -) 25 mcg IVPUSH [id number] PRN PRN Reason: PAIN Stop: 03/07/17 14:08 Folic Acid/Iron (Folitab 500 Caplet -) 1 each PO DAILY [facility] Last Admin: 03/06/17 15:32 Dose: 1 each HCTZ/Losartan Potassium (Hyzaar -) 1 tab PO DAILY [facility] Last Admin: 03/06/17 09:59 Dose: 1 tab Hydromorphone HCl (Dilaudid Injection -) 1 mg IVPB Q6H PRN PRN Reason: PAIN Dextrose/Sodium Chloride (D5-1/2ns -) 1,000 mls @ 75 mls/hr IV ASDIR [facility] Last Admin: 03/06/17 13:26 Dose: Not Given Insulin Aspart (Novolog Vial Sliding Scale -) 1 vial SQ Q6H [facility] PRN Reason: Protocol Last Admin: 03/07/17 06:10 Dose: Not Given Levothyroxine Sodium (Synthroid -) 50 mcg PO DAILY@0700 [facility] Last Admin: 03/07/17 06:12 Dose: 50 mcg Oxycodone HCl (Roxicodone -) 5 mg PO Q4H PRN PRN Reason: MILD PAIN Last Admin: 03/05/17 20:17 Dose: 5 mg Paroxetine HCl (Paxil -) 20 mg PO DAILY [facility] Last Admin: 03/06/17 09:59 Dose: 20 mg Propranolol HCl (Inderal La -) 80 mg PO DAILY [facility] Last Admin: 03/06/17 09:59 Dose: 80 mg - Objective Vital Signs: Vital Signs Temperature 99.6 F 03/07/17 07:03 Pulse Rate 60 03/07/17 07:03 Respiratory Rate 20 08/21/17 07:03 Blood Pressure 134/58 03/07/17 07:03 O2 Sat by Pulse Oximetry (%) 99 03/06/17 21:00 Elderly F s/p Partial thyroidectom, no distress HEENT: Mm moist no anemoa, PERRLA NECK: S/P Thyroidectomy no JVD CHEST: CTA B/L CVs; s1SR ABD: No distention non tender Bs + EXT: No edema feet, no calf tenderness Pulses + ANGIOGRAPHY TECHNOLOGIST: AOX3 non focal Labs: CBC, BMP 03/07/17 06:00 Problem List - Problems (1) Diabetes Assessment/Plan: Hold Po meds RISS Code(s): E11.9 - TYPE 2 DIABETES MELLITUS WITHOUT COMPLICATIONS Qualifiers: Diabetes mellitus type: type 2 (2) Status post thymectomy Assessment/Plan: S/P Thyroidectomy day 2nd for goiter , post OP management as per surgery team Code(s): Z90.89 - ACQUIRED ABSENCE OF OTHER ORGANS (3) HTN (hypertension) Assessment/Plan: Well controlled cont home meds Code(s): I10 - ESSENTIAL (PRIMARY) HYPERTENSION Qualifiers: Hypertension type: essential hypertension Qualified Code(s): I10 - Essential (primary) hypertension
[2017-03-07 09:07] LABS: ALK PHOS 47 U/L (45-117); ANION GAP 7 (8-16); BILIRUBIN,TOTAL 0.4 mg/dL (0.2-1.0); CALCIUM 8.5 mg/dL (8.5-10.1); CO2 30 mmol/L (21-32); CREATININE 1.1 mg/dL (0.55-1.02); GLUCOSE,RANDOM 135 mg/dL (74-106); SGOT/AST 17 U/L (15-37); SGPT/ALT 21 U/L (12-78); TOT PROT 5.9 g/dl (6.4-8.2)
[2017-03-07] MEDS: PARoxetine HCL 20 MG TABLET (FP) PO SCH (10:22)
[2017-03-07] MEDS: CALCIUM 250MG/VIT-D 125 UNITS 1 COMBO TABLET PO SCH ×2 (10:22→22:00)
[2017-03-07] MEDS: FERROUS SO4/VIT C/FA 1 EACH TABLET.ER PO SCH (10:23)
[2017-03-07] MEDS: LOSARTAN 50MG/HCTZ 12.5MG 1 TAB (FP) PO SCH (10:23)
--- NOTE | 2017-03-07 11:19 | PN ---
Progress Note, Physician History of Present Illness: 76 y/o female with HTN, HLD and DM2 who underwent total thyroidectomy POD#[address] Wynn. Denies recurrent palpitations. - Current Medication List Current Medications: Active Medications Acetaminophen (Tylenol -) 650 mg PO Q4H PRN PRN Reason: FEVER OR PAIN Last Admin: 03/06/17 22:15 Dose: 650 mg Calcium/Vitamin D (Oscal 250 Mg+D -) 2 tab PO BID [facility] Last Admin: 03/07/17 10:22 Dose: 2 tab Fentanyl (Sublimaze Injection -) 25 mcg IVPUSH [id number] PRN PRN Reason: PAIN Stop: 03/07/17 14:08 Folic Acid/Iron (Folitab 500 Caplet -) 1 each PO DAILY [facility] Last Admin: 03/07/17 10:23 Dose: 1 each HCTZ/Losartan Potassium (Hyzaar -) 1 tab PO DAILY [facility] Last Admin: 03/07/17 10:23 Dose: 1 tab Hydromorphone HCl (Dilaudid Injection -) 1 mg IVPB Q6H PRN PRN Reason: PAIN Dextrose/Sodium Chloride (D5-1/2ns -) 1,000 mls @ 75 mls/hr IV ASDIR [facility] Last Admin: 03/06/17 13:26 Dose: Not Given Insulin Aspart (Novolog Vial Sliding Scale -) 1 vial SQ Q6H [facility] PRN Reason: Protocol Last Admin: 03/07/17 06:10 Dose: Not Given Levothyroxine Sodium (Synthroid -) 50 mcg PO DAILY@0700 [facility] Last Admin: 03/07/17 06:12 Dose: 50 mcg Oxycodone HCl (Roxicodone -) 5 mg PO Q4H PRN PRN Reason: MILD PAIN Last Admin: 03/05/17 20:17 Dose: 5 mg Paroxetine HCl (Paxil -) 20 mg PO DAILY [facility] Last Admin: 03/07/17 10:22 Dose: 20 mg Propranolol HCl (Inderal La -) 80 mg PO DAILY [facility] Last Admin: 03/07/17 10:22 Dose: 80 mg - Objective Vital Signs: Vital Signs Temperature 99.6 F 03/07/17 07:03 Pulse Rate 60 03/07/17 07:03 Respiratory Rate 20 03/07/17 07:03 Blood Pressure 134/58 03/07/17 07:03 O2 Sat by Pulse Oximetry (%) 99 03/06/17 21:00 Constitutional: Yes: No Distress, Calm Neck: Yes: Supple Cardiovascular: Yes: Regular Rate and Rhythm Respiratory: Yes: Regular, Diminished Gastrointestinal: Yes: Normal Bowel Sounds, Soft, Abdomen, Obese Edema: No Labs: CBC, BMP 03/07/17 06:00 03/07/17 06:00 Problem List - Problems (1) HTN (hypertension) Code(s): I10 - ESSENTIAL (PRIMARY) HYPERTENSION Qualifiers: Hypertension type: essential hypertension Qualified Code(s): I10 - Essential (primary) hypertension (2) T2DM (type 2 diabetes mellitus) Code(s): E11.9 - TYPE 2 DIABETES MELLITUS WITHOUT COMPLICATIONS Qualifiers: Diabetes mellitus complication status: without complication Diabetes mellitus correction insulin use: without correction use Qualified Code(s): E11.9 - Type 2 diabetes mellitus without complications (3) Hyperlipidemia associated with type 2 diabetes mellitus Code(s): E11.69 - TYPE 2 DIABETES MELLITUS WITH OTHER SPECIFIED COMPLICATION E78.5 - HYPERLIPIDEMIA, UNSPECIFIED (4) History of thyroidectomy, total Code(s): E89.0 - POSTPROCEDURAL HYPOTHYROIDISM (5) Intermittent palpitations Code(s): R00.2 - PALPITATIONS (6) Anemia Code(s): D64.9 - ANEMIA, UNSPECIFIED Qualifiers: Anemia type: other cause Assessment/Plan 1. s/p Total Thyroidectomy POD #2 2. Palpitations, evaluate for sustained arrhythmia 3. HTN 4. Hyperlipidemia 5. DM 6. Anemia P:1. Analgesia as needed, monitor drain output, DVT prophylaxis, post-op f/u 2. Continue Hyzaar 1 qd, Inderal LA 80 qd, resume ASA 81 qd once post-op hemostasis has beed achieved 3. Echocardiogram to assess ventricular and valve fxn 4. Holter monitor to assess arrhythmia burden
--- NOTE | 2017-03-07 15:14 | PATH ---
Surgical Pathology Report Patient Name: JAMAL LEE Med. Rec. #: [id number] /Age/Gender: 1940 (Age: 76) / F Account: [id number] Location: [facility] MED/SURG Taken: 03/04/2017 Received: 03/04/2017 Reported: 03/07/2017 Physicians: Teri Wynn M.D. Specimen(s) Received RIGHT THYROID LOBE, MEDIASTINAL GOITER Clinical History Thyroid nodular goiter Final Diagnosis THYROID GLAND, RIGHT LOBE, MEDIASTINAL GOITER, LOBECTOMY: BENIGN MULTINODULAR HYPERPLASIA (GOITER) WITH CYSTIC AND DEGENERATIVE CHANGES. NO MALIGNANCY IDENTIFIED. Electronically Signed Ten Escalona M.D. Gross Description Received fresh labeled "right lobe of thyroid, mediastinal goiter" is a 254 g 15.0 x 13.8 x 3.6 cm aggregate of multiple irregular, unoriented portions of nodular thyroid tissue with colloid appearing nodules. The larger portions are inked blue and the specimens are serially sectioned. Sectioning reveals abundant heterogeneous, focally hemorrhagic colloid appearing nodules. No intact thyroid parenchyma is identified. [employer] sections are submitted in 17 cassettes. 03/04/2017 /03/04/2017 [facility]03/04/2017
[2017-03-07 15:29] LABS: MCH 31.1 pg (25.7-33.7); MCHC 33.6 g/dl (32.0-36.0); MEAN CELL VOLUME 92.3 fl (80-96); MEAN PLT VOLUME 9.9 fl (7.5-11.1); PLATELET COUNT 160 K/MM3 (134-434); WHITE BLOOD COUNT 8.9 K/mm3 (4.0-10.0)
--- NOTE | 2017-03-07 16:36 | PN ---
Progress Note, Physician - Current Medication List Current Medications: Active Medications Acetaminophen (Tylenol -) 650 mg PO Q4H PRN PRN Reason: FEVER OR PAIN Last Admin: 03/06/17 22:15 Dose: 650 mg Calcium/Vitamin D (Oscal 250 Mg+D -) 2 tab PO BID [facility] Last Admin: 03/07/17 10:22 Dose: 2 tab Folic Acid/Iron (Folitab 500 Caplet -) 1 each PO DAILY [facility] Last Admin: 03/07/17 10:23 Dose: 1 each HCTZ/Losartan Potassium (Hyzaar -) 1 tab PO DAILY [facility] Last Admin: 03/07/17 10:23 Dose: 1 tab Hydromorphone HCl (Dilaudid Injection -) 1 mg IVPB Q6H PRN PRN Reason: PAIN Dextrose/Sodium Chloride (D5-1/2ns -) 1,000 mls @ 75 mls/hr IV ASDIR [facility] Last Admin: 03/06/17 13:26 Dose: Not Given Insulin Aspart (Novolog Vial Sliding Scale -) 1 vial SQ Q6H [facility] PRN Reason: Protocol Last Admin: 03/07/17 11:45 Dose: 2 units Levothyroxine Sodium (Synthroid -) 50 mcg PO DAILY@0700 [facility] Last Admin: 03/07/17 06:12 Dose: 50 mcg Oxycodone HCl (Roxicodone -) 5 mg PO Q4H PRN PRN Reason: MILD PAIN Last Admin: 03/05/17 20:17 Dose: 5 mg Paroxetine HCl (Paxil -) 20 mg PO DAILY [facility] Last Admin: 03/07/17 10:22 Dose: 20 mg Propranolol HCl (Inderal La -) 80 mg PO DAILY [facility] Last Admin: 03/07/17 10:22 Dose: 80 mg - Objective Vital Signs: Vital Signs Temperature 99.8 F H 03/07/17 14:44 Pulse Rate 69 03/07/17 14:44 Respiratory Rate 18 03/07/17 14:44 Blood Pressure 135/59 03/07/17 14:44 O2 Sat by Pulse Oximetry (%) 99 03/07/17 09:00 Labs: CBC, BMP 03/07/17 14:20 03/07/17 06:00 Problem List - Problems (1) Abdominal pain Code(s): R10.9 - UNSPECIFIED ABDOMINAL PAIN Qualifiers: Abdominal location: periumbilical Qualified Code(s): R10.33 - Periumbilical pain (2) Vomiting Code(s): R11.10 - VOMITING, UNSPECIFIED (3) Elevated lipase Code(s): R74.8 - ABNORMAL LEVELS OF OTHER SERUM ENZYMES (4) HTN (hypertension) Code(s): I10 - ESSENTIAL (PRIMARY) HYPERTENSION Qualifiers: Hypertension type: essential hypertension Qualified Code(s): I10 - Essential (primary) hypertension (5) Hyperlipidemia associated with type 2 diabetes mellitus Code(s): E11.69 - TYPE 2 DIABETES MELLITUS WITH OTHER SPECIFIED COMPLICATION E78.5 - HYPERLIPIDEMIA, UNSPECIFIED Assessment/Plan Wound is clean , normal voice. Serum calcium is normal. hematocrit is stable. Patient can be discharged home with oscal , ferrous sulphate, motrin and synthroid. Will call my office for follow up appointment. Discharge when cleared by cardiology. Instructions given to the patient.
[2017-03-07] MEDS: DEXTROSE 5%-0.45% SALINE 1,000 ML IV SCH (17:45)
[2017-03-07] MEDS: ACETAMINOPHEN 325 MG TABLET (FP) PO PRN (22:00)
[2017-03-08] MEDS: INSULIN SLIDING SCALE (NOVOLOG) 1 VIAL SQ SCH ×4 (01:29→17:30)
[2017-03-08] MEDS: LEVOTHYROXINE NA 50 MCG TABLET (FP) PO SCH (06:26)
[2017-03-08 10:12] LABS: CALCIUM 8.2 mg/dL (8.7-10.3)
--- NOTE | 2017-03-08 10:27 | PN ---
Progress Note, Physician - Current Medication List Current Medications: Active Medications Acetaminophen (Tylenol -) 650 mg PO Q4H PRN PRN Reason: FEVER OR PAIN Last Admin: 03/07/17 22:00 Dose: 650 mg Calcium/Vitamin D (Oscal 250 Mg+D -) 2 tab PO BID [facility] Last Admin: 03/07/17 22:00 Dose: 2 tab Folic Acid/Iron (Folitab 500 Caplet -) 1 each PO DAILY [facility] Last Admin: 03/07/17 10:23 Dose: 1 each HCTZ/Losartan Potassium (Hyzaar -) 1 tab PO DAILY [facility] Last Admin: 03/07/17 10:23 Dose: 1 tab Hydromorphone HCl (Dilaudid Injection -) 1 mg IVPB Q6H PRN PRN Reason: PAIN Dextrose/Sodium Chloride (D5-1/2ns -) 1,000 mls @ 75 mls/hr IV ASDIR [facility] Last Admin: 03/07/17 17:45 Dose: Not Given Insulin Aspart (Novolog Vial Sliding Scale -) 1 vial SQ Q6H [facility] PRN Reason: Protocol Last Admin: 03/08/17 06:25 Dose: Not Given Levothyroxine Sodium (Synthroid -) 50 mcg PO DAILY@0700 [facility] Last Admin: 03/08/17 06:26 Dose: 50 mcg Oxycodone HCl (Roxicodone -) 5 mg PO Q4H PRN PRN Reason: MILD PAIN Last Admin: 03/05/17 20:17 Dose: 5 mg Paroxetine HCl (Paxil -) 20 mg PO DAILY [facility] Last Admin: 03/07/17 10:22 Dose: 20 mg Propranolol HCl (Inderal La -) 80 mg PO DAILY [facility] Last Admin: 03/07/17 10:22 Dose: 80 mg - Objective Vital Signs: Vital Signs Temperature 99.6 F 03/08/17 06:00 Pulse Rate 65 03/08/17 06:00 Respiratory Rate 20 03/08/17 06:00 Blood Pressure 139/77 03/08/17 06:00 O2 Sat by Pulse Oximetry (%) 99 03/07/17 21:00 Labs: CBC, BMP 03/07/17 14:20 03/07/17 06:00 Problem List - Problems (1) Abdominal pain Code(s): R10.9 - UNSPECIFIED ABDOMINAL PAIN Qualifiers: Abdominal location: periumbilical Qualified Code(s): R10.33 - Periumbilical pain (2) Vomiting Code(s): R11.10 - VOMITING, UNSPECIFIED (3) Elevated lipase Code(s): R74.8 - ABNORMAL LEVELS OF OTHER SERUM ENZYMES (4) HTN (hypertension) Code(s): I10 - ESSENTIAL (PRIMARY) HYPERTENSION Qualifiers: Hypertension type: essential hypertension Qualified Code(s): I10 - Essential (primary) hypertension (5) Hyperlipidemia associated with type 2 diabetes mellitus Code(s): E11.69 - TYPE 2 DIABETES MELLITUS WITH OTHER SPECIFIED COMPLICATION E78.5 - HYPERLIPIDEMIA, UNSPECIFIED Assessment/Plan Wound is clean , no seroma. Cardiac workup in progress. Will follow in my office.
[2017-03-08] MEDS: CALCIUM 250MG/VIT-D 125 UNITS 1 COMBO TABLET PO SCH (10:36)
[2017-03-08] MEDS: LOSARTAN 50MG/HCTZ 12.5MG 1 TAB (FP) PO SCH (10:37)
[2017-03-08] MEDS: PARoxetine HCL 20 MG TABLET (FP) PO SCH (10:37)
[2017-03-08] MEDS: FERROUS SO4/VIT C/FA 1 EACH TABLET.ER PO SCH (10:39)
[2017-03-08] MEDS ORDERED: INSULIN (NOVOLOG) ASPART 100 UNITS/ML 10ML VIAL ONE (12:16)
--- NOTE | 2017-03-08 14:51 | PN ---
Progress Note, Physician Chief Complaint: Not in distress History of Present Illness: Patient was seen and examined. Awake and alert. Chart was reviewed Denies chest pain, shortness of breath or palpitations - Current Medication List Current Medications: Active Medications Acetaminophen (Tylenol -) 650 mg PO Q4H PRN PRN Reason: FEVER OR PAIN Last Admin: 03/07/17 22:00 Dose: 650 mg Calcium/Vitamin D (Oscal 250 Mg+D -) 2 tab PO BID [facility] Last Admin: 03/08/17 10:36 Dose: 2 tab Folic Acid/Iron (Folitab 500 Caplet -) 1 each PO DAILY [facility] Last Admin: 03/08/17 10:39 Dose: 1 each HCTZ/Losartan Potassium (Hyzaar -) 1 tab PO DAILY [facility] Last Admin: 03/08/17 10:37 Dose: 1 tab Hydromorphone HCl (Dilaudid Injection -) 1 mg IVPB Q6H PRN PRN Reason: PAIN Dextrose/Sodium Chloride (D5-1/2ns -) 1,000 mls @ 75 mls/hr IV ASDIR [facility] Last Admin: 03/07/17 17:45 Dose: Not Given Insulin Aspart (Novolog Vial Sliding Scale -) 1 vial SQ Q6H SHANELL PRN Reason: Protocol Last Admin: 03/08/17 12:29 Dose: 2 units Levothyroxine Sodium (Synthroid -) 50 mcg PO DAILY@0700 [facility] Last Admin: 03/08/17 06:26 Dose: 50 mcg Paroxetine HCl (Paxil -) 20 mg PO DAILY [facility] Last Admin: 03/08/17 10:37 Dose: 20 mg Propranolol HCl (Inderal La -) 80 mg PO DAILY [facility] Last Admin: 03/08/17 10:36 Dose: 80 mg - Objective Vital Signs: Vital Signs Temperature 98.2 F 03/08/17 10:00 Pulse Rate 69 03/08/17 10:00 Respiratory Rate 18 03/08/17 10:00 Blood Pressure 153/77 03/08/17 10:00 O2 Sat by Pulse Oximetry (%) 99 03/07/17 21:00 HENT: Yes: Atraumatic Neck: Yes: Supple Cardiovascular: Yes: Regular Rate and Rhythm, S1, S2. No: Murmur Respiratory: Yes: CTA Bilaterally Gastrointestinal: Yes: Normal Bowel Sounds, Soft. No: Tenderness Edema: No Labs: CBC, BMP 08/21/17 14:20 03/07/17 06:00 Problem List - Problems (1) HTN (hypertension) Code(s): I10 - ESSENTIAL (PRIMARY) HYPERTENSION Qualifiers: Hypertension type: essential hypertension Qualified Code(s): I10 - Essential (primary) hypertension (2) History of thyroidectomy, total Code(s): E89.0 - POSTPROCEDURAL HYPOTHYROIDISM (3) Hyperlipidemia associated with type 2 diabetes mellitus Code(s): E11.69 - TYPE 2 DIABETES MELLITUS WITH OTHER SPECIFIED COMPLICATION E78.5 - HYPERLIPIDEMIA, UNSPECIFIED (4) Intermittent palpitations Code(s): R00.2 - PALPITATIONS (5) T2DM (type 2 diabetes mellitus) Code(s): E11.9 - TYPE 2 DIABETES MELLITUS WITHOUT COMPLICATIONS Qualifiers: Diabetes mellitus complication status: without complication Diabetes mellitus group home insulin use: without group home use Qualified Code(s): E11.9 - Type 2 diabetes mellitus without complications Assessment/Plan 1. Status post total thyroidectomy 2. Palpitations rule out arrhythmias 3. HTN 4. Hyperlipidemia 5. DM 6. Anemia PLAN: 1. Analgesia as needed, continue DVT prophylaxis and post-op follow up 2. Continue Hyzaar and Inderal LA. Resume ASA 81 qd once post-op hemostasis is achieved 3. Echocardiography revealed normal left ventricular systolic function, moderate TR, mild MR and mild pulmonary hypertension (reviewed myself) 4. Holter monitor revealed sinus rhythm with APCs and couplets and triplets. Few PVCs were also seen. There were no sustained runs of atrial or ventricular arrhythmias Patient may be discharged home cardiac standpoint. She will follow up in my office in 2 weeks Tim Pabon MD
[2017-03-08] MEDS: DEXTROSE 5%-0.45% SALINE 1,000 ML IV SCH (16:58)
--- NOTE | 2017-03-08 17:47 | DS ---
Physical Examination Vital Signs: Vital Signs Temperature 98.9 F 03/08/17 14:58 Pulse Rate 74 03/08/17 14:58 Respiratory Rate 16 03/08/17 14:58 Blood Pressure 132/74 03/08/17 14:58 O2 Sat by Pulse Oximetry (%) 99 03/08/17 09:00 Labs: CBC, BMP 03/07/17 14:20 03/07/17 06:00 Discharge Summary Reason For Visit: STATUS POST THYROIDECTOMY Current Active Problems Abdominal pain (Acute) Anemia (Acute) Elevated lipase (Acute) HTN (hypertension) (Acute) History of thyroidectomy, total (Acute) Hyperlipidemia associated with type 2 diabetes mellitus (Acute) Intermittent palpitations (Acute) Status post thymectomy (Acute) T2DM (type 2 diabetes mellitus) (Acute) Vomiting (Acute) Condition: Stable - Instructions Diet, Activity, Other Instructions: Follow up in my office on 03/10/2017 at 4.30 pm. call [phone]. Referrals: Stephanie Wynn MD [Staff Physician] - Disposition: HOME - Home Medications Comprehensive Discharge Medication List: Ambulatory Orders Aspirin [ASA -] 81 mg PO DAILY 08/07/15 Paroxetine HCl [Paxil] 20 mg PO DAILY 08/07/15 Propranolol HCl [Inderal LA] 80 mg PO DAILY 08/07/15 Losartan/Hydrochlorothiazide [Hyzaar 50-12.5 Tablet] 1 each PO DAILY 02/24/17 Rosuvastatin Calcium [Crestor] 5 mg PO DAILY 02/24/17 Saxagliptin HCl/Metformin HCl [Kombiglyze Xr 5-500 mg Tablet] 1 tab DAILY Calcium 250Mg/Vit-D 125 Units [Oscal 250 mg+D -] 1 combo PO BID #14 tablet 03/07 Ferrous Sulfate 325 mg PO DAILY #14 tablet 03/07/17 Ibuprofen [Motrin -] 400 mg PO TID #21 tablet 03/07/17 Levothyroxine Sodium [Synthroid] 88 mcg PO DAILY #30 tablet 03/07/17 Oxycodone HCl [Roxicodone -] 5 mg PO Q6H PRN #20 tablet MDD 4 03/08/17
[2017-03-08 20:33] VITALS: BP 143/79; PULSE 85; TEMP 97.7
--- NOTE | 2017-03-10 07:59 | HOL ---
Hook-up date: 2017-03-07 14:22:00 Duration: 23:03:00 Test Indications: INTERMITTENT PALPITATIONS Medications: 89309 QRS complexes 5 Ventricular ectopics which represent <1 % of total QRS comp. 152 Supraventricular ectopics which represent <1 % of total QRS comp. * Paced QRS complexs which represent % of total QRS comp. * % of Time Classified as Noise VENTRICULAR ECTOPY 5 Isolated 0 Bigeminal Cycles 0 Couplets 0 Runs 0 Beats in Runs * Beats LONGEST at * BPM at :: -- * Beats FASTEST at * BPM at :: -- SUPRAVENTRICULAR ECTOPY 92 Isolated 21 Couplets 6 Runs 18 Beats in Runs 3 Beats LONGEST at 123 BPM at 19:53:06 2017-03-07 3 Beats FASTEST at 159 BPM at 02:40:36 2017-03-08 HEART RATES 50 MIN at 05:00:30 2017-03-08 68 AVG 103 MAX at 22:12:48 2017-03-07 LONGEST RR 1.336 secs at 07:12:08 2017-03-08 SCANNED BY: PRIMO 03/08/17 1. Basic rhythm is sinus, average daily heart rate of 68 BPM. Rhythm was interrupted by both sinus bradycardia and sinus tachycardia. 2. Rare supravetnricular premature beats which at times were conducted by aberrancy and at times were successive and 3 in a row . One episode of 3 beats in a row at 02:[address]-T wave changes were rate related. eg 22:12 4. No diary was submitted. Confirmed by SHEIKH HARRIS, ANANYA ([id number]), fashion editor HARRISON FLORES (1) on 03/10/2017 7:58:38 AM Referred By: Stephanie Wynn Overread By: ANANYA MENDENHALL MD
== END 2017-03-08 19:03 | disposition home or self-care (01) | DRG 982 ==
LOC: JASU-SURG 05:03 → JSAMEDAYSX 14:14 → JICU 16:39 → J8W 03-05 13:16
PROVIDERS: ADMIT Specialist; ATTEND Specialist
PROC: 30233N1 Transfusion of Nonautologous Red Blood Cells into Peripheral Vein, Percutaneous Approach (ICD-10-PCS; 2017-03-04)
PROC: 0GTH0ZZ Resection of Right Thyroid Gland Lobe, Open Approach (ICD-10-PCS; principal; 2017-03-04 09:30)
DX: I97.89 Other postprocedural complications and disorders of the circulatory system, not elsewhere classified (principal); D62 Acute posthemorrhagic anemia; E04.2 Nontoxic multinodular goiter; I10 Essential (primary) hypertension; E78.5 Hyperlipidemia, unspecified; E11.9 Type 2 diabetes mellitus without complications; E66.8 Other obesity; Z68.35 Body mass index [BMI] 35.0-35.9, adult; Y83.8 Other surgical procedures as the cause of abnormal reaction of the patient, or of later complication, without mention of misadventure at the time of the procedure; R00.2 Palpitations; E89.0 Postprocedural hypothyroidism; R74.8 Abnormal levels of other serum enzymes; R10.33 Periumbilical pain; R11.10 Vomiting, unspecified; I27.2 Other secondary pulmonary hypertension; I07.1 Rheumatic tricuspid insufficiency; Z79.84 Long term (current) use of oral hypoglycemic drugs; Z87.891 Personal history of nicotine dependence
CPT/HCPCS: 36415; 71010-TC; 71020-TC; 80048; 80053; 82310; 82330; 82553; 83036; 83735; 83970; 84100; 84439; 84443; 84484; 85025; 85027; 86850; 86900; 86901; 86922; 88307-TC; 93005; 93010; 93225; 93226; 93306-TC; 94010; 94760; P9038; P9058